=== PATIENT | female | born 1990 | race Two or more races ===

== ENCOUNTER 2017-12-31 09:59 | Emergency (ER) | payer OTHER ==
[~2017-12-31] VITALS: Ht 157.5 cm; Wt 55.8 kg
[2017-12-31] MEDS ORDERED: ZYRTEC10 MG PO (10:10)
[2017-12-31] MEDS ORDERED: SINGULAIR10 MG (10:10)
== END 2017-12-31 13:52 | disposition home or self-care (01) ==
LOC: ER 09:59
DX: K29.70 Gastritis, unspecified, without bleeding (principal); R10.13 Epigastric pain

== ENCOUNTER 2018-12-02 16:11 | Emergency (ER) | payer OTHER ==
[~2018-12-02] VITALS: Ht 157.5 cm; Wt 50.8 kg
[~2018-12-02 16:11] MED LIST: SINGULAIR10 MG; ZYRTEC10 MG PO
== END 2018-12-02 18:51 | disposition home or self-care (01) ==
LOC: ER 16:11
DX: R31.9 Hematuria, unspecified (principal)

== ENCOUNTER 2019-05-09 15:06 | Emergency (ER) | payer OTHER ==
[~2019-05-09] VITALS: Ht 157.5 cm; Wt 52.6 kg
== END 2019-05-09 18:06 | disposition home or self-care (01) ==
LOC: ER 15:06
DX: J06.9 Acute upper respiratory infection, unspecified (principal); B96.0 Mycoplasma pneumoniae [M. pneumoniae] as the cause of diseases classified elsewhere

== ENCOUNTER 2019-05-25 18:01 | Emergency (ER) | payer OTHER ==
[~2019-05-25] VITALS: Ht 157.5 cm; Wt 52.6 kg
== END 2019-05-25 22:15 | disposition home or self-care (01) ==
LOC: ER 18:01
DX: N83.292 Other ovarian cyst, left side (principal); R10.2 Pelvic and perineal pain

== ENCOUNTER 2019-09-01 05:59 | Emergency (ER) | payer OTHER ==
[~2019-09-01] VITALS: Ht 157.5 cm; Wt 52.6 kg
== END 2019-09-01 10:25 | disposition home or self-care (01) ==
LOC: ER 05:59
DX: G44.89 Other headache syndrome (principal); R10.2 Pelvic and perineal pain

== ENCOUNTER 2020-02-09 12:23 | Emergency (ER) | payer OTHER ==
[~2020-02-09] VITALS: Ht 157.5 cm; Wt 50.8 kg
[2020-02-09] MEDS ORDERED: PEPCID AC20 MG PO (15:11)
[2020-02-09] MEDS ORDERED: INTESTINEX680 M1 PO (15:11)
[2020-02-09] MEDS ORDERED: ZITHROMAX200 MG PO (15:11)
== END 2020-02-09 15:56 | disposition home or self-care (01) ==
LOC: ER 12:23
DX: K29.00 Acute gastritis without bleeding (principal); B96.0 Mycoplasma pneumoniae [M. pneumoniae] as the cause of diseases classified elsewhere; Z03.818 Encounter for observation for suspected exposure to other biological agents ruled out

== ENCOUNTER 2020-02-15 13:04 | Emergency (ER) | payer OTHER ==
[~2020-02-15] VITALS: Ht 157.5 cm; Wt 50.8 kg
[~2020-02-15 13:04] MED LIST changes: +INTESTINEX680 M1 PO; +PEPCID AC20 MG PO; +ZITHROMAX200 MG PO
== END 2020-02-15 16:50 | disposition home or self-care (01) ==
LOC: ER 13:04
DX: R00.2 Palpitations (principal); R00.0 Tachycardia, unspecified; E86.0 Dehydration; Z03.818 Encounter for observation for suspected exposure to other biological agents ruled out

== ENCOUNTER 2020-05-14 19:04 | Emergency (ER) | payer OTHER ==
[~2020-05-14] VITALS: Ht 157.5 cm; Wt 50.8 kg
== END 2020-05-14 22:30 | disposition home or self-care (01) ==
LOC: ER 19:04
DX: R10.13 Epigastric pain (principal)

== ENCOUNTER → 2020-07-21 | Emergency (ER) | payer OTHER ==
[~2020-07-21] VITALS: Ht 157.5 cm; Wt 50.8 kg
[~2020-07-21] MED LIST changes: +CEFUROXIME500 MG PO; +PYRIDIUM DS200 MG PO
== END | disposition home or self-care (01) ==
LOC: ER 04:40
DX: N30.80 Other cystitis without hematuria (principal)

== ENCOUNTER → 2021-07-28 | Emergency (ER) | payer OTHER ==
[~2021-07-28] VITALS: Ht 154.9 cm; Wt 45.4 kg
== END | disposition left against medical advice (07) ==
LOC: ER 18:32
DX: Z53.21 Procedure and treatment not carried out due to patient leaving prior to being seen by health care provider (principal)